=== PATIENT | female | born 1995 | race Caucasian/White ===

== ENCOUNTER 2016-10-17 22:29 | Emergency (ER) | payer BC, MEDICAID | END 2016-10-18 02:40 | disposition home or self-care (01) | LOC: ER 22:29 | DX: R10.2 Pelvic and perineal pain (principal); R30.0 Dysuria; F17.210 Nicotine dependence, cigarettes, uncomplicated | CPT/HCPCS: 36415; 80053; 81001; 83690; 84703; 85025; 87491; 87591; 87800 ==